=== PATIENT | female | born 1955 | race Asian ===

== ENCOUNTER 2016-06-11 14:28 | Emergency (ER) | payer BC, OTHER ==
[~2016-06-11] VITALS: Ht 157.5 cm; Wt 53.6 kg
[~2016-06-11 14:28] MED LIST: SIMV20TA2 PO; VITAMIN E PO
[2016-06-11 14:29] VITALS: Ht 157.5 cm; Wt 53.6 kg
[2016-06-11] MEDS ORDERED: ASPIRIN 81 MG TAB PO STA (14:45)
[2016-06-11] MEDS ORDERED: NITROGLYCERIN 2% 1 GM OINT PKT TD STA (14:45)
[2016-06-11] MEDS ORDERED: SOD CHLORIDE 0.9% 1,000 ML IV STA (14:46)
[2016-06-11] MEDS ORDERED: NITROGLYCERIN (SL) 0.4 MG TAB SL PRN (15:00)
[2016-06-11 15:18] LABS: ADD SCAN DIFF NO
[2016-06-11 15:20] LABS: BASOPHILS % 0.1 % (0.0-2.0); EOSINOPHILS % 0.1 % (0.0-7.0); HEMATOCRIT 46.3 % (37.0-47.0); HEMOGLOBIN 15.3 g/dl (12.0-16.0); LYMPHOCYTES # 0.8 10^3/ul (0.8-2.9); LYMPHOCYTES % 4.3 % (15.0-51.0); MEAN CORPUSCULAR HEMOGLOBIN 29.4 pg (29.0-33.0); MEAN PLATELET VOLUME 10.2 fl (7.4-10.4); MONOCYTE # 0.6 10^3/ul (0.3-0.9); MONOCYTES % 3.2 % (0.0-11.0); NEUTROPHIL # 17.7 10^3/ul (1.6-7.5); NEUTROPHILS % 91.5 % (39.0-77.0); PLATELET COUNT 238 10^3/UL (140-415); RED CELL DISTRIBUTION WIDTH 12.7 % (11.5-14.5); WHITE BLOOD COUNT 19.4 10^3/ul (4.8-10.8)
[2016-06-11 15:35] LABS: INR 0.86; PROTIME 11.7 Sec (12.2-14.2); PT RATIO 0.9
[2016-06-11 15:36] LABS: CHLORIDE 101 mmol/L (97-110); PARTIAL THROMBOPLASTIN TIME 25.8 Sec (25.0-35.0); SODIUM 140 mmol/L (135-144)
[2016-06-11 15:37] LABS: POTASSIUM 3.4 mmol/L (3.5-5.1)
[2016-06-11 15:39] LABS: ANION GAP 18 (8-16); CARBON DIOXIDE 24 mmol/L (21-31); CREATININE 0.77 mg/dl (0.44-1.00)
[2016-06-11 15:40] LABS: BLOOD UREA NITROGEN 13 mg/dl (7-20); CALCIUM 9.5 mg/dl (8.4-10.2); GLUCOSE 156 mg/dl (70-220)
--- NOTE | 2016-06-11 15:41 | RADRPT ---
PROCEDURE: XR Chest. CLINICAL INDICATION: Chest pain. TECHNIQUE: Single frontal view. COMPARISON: None. FINDINGS: The lungs are clear. The heart size is normal. There is a 2.3 cm soft tissue density superior to the aortic arch. There is no pleural effusion. There is no pneumothorax. IMPRESSION: 1. Soft tissue density measuring 2.3 cm superior to the aortic arch. This may indicate lymphadenop athy, aneurysm, or other vascular anomaly. Correlation with contrast enhanced CT scan of the chest is advised. 2. Otherwise unremarkable chest radiograph. RPTAT: QQ .Barrington Vanegas MD, MD Date Time Electronically viewed and signed by .Barrington Vanegas MD, MD on 06/11/2016 15:40 .R/
[2016-06-11] MEDS ORDERED: SOD CHLORIDE 0.9% 100 ML ONE (15:45)
[2016-06-11] MEDS ORDERED: IOHEXOL 100 ML ONE (15:45)
[2016-06-11 15:52] LABS: TROPONIN-I < 0.012 ng/ml (0.00-0.12)
--- NOTE | 2016-06-11 16:28 | RADRPT ---
PROCEDURE: CT Pulmonary Angiogram. CLINICAL INDICATION: Chest pain and shortness of breath. TECHNIQUE: CT pulmonary angiogram and a CT scan of the chest with contrast was performed. The pat ient was scanned following the uncomplicated intravenous administration of 100 cc of Omnipaque-350 i ntravenous contrast. 2-D coronal reformatted images were obtained from the axial source images. In addition, 3-D post processing was performed. Total exam DLP is 250.84 mGy-cm. CTDIvol is 35.21 mG y. One or more of the following dose reduction techniques were used: Automated exposure control, ad justment of the mA and/or kV according to patient size, use of iterative reconstruction technique. COMPARISON: None available. FINDINGS: The pulmonary arteries are normal with no filling defect or lack of enhancement to suggest pulmonary artery embolism. The lungs are clear. There is no pulmonary airspace or interstitial disease. There is no pulmonary nodule or mass lesion. There is no pneumothorax. There is no mediastinal or hilar lymphadenopathy or mass. There is no pleural effusion. There is no pericardial effusion. The thoracic aorta is normal with no aneurysm or dissection. Images through the upper abdomen demonstrate normal visualized portions of the liver, spleen, and ad renals. The osseous structures are normal with no fracture or lytic lesion. IMPRESSION: 1. Normal CT pulmonary angiogram with no evidence of pulmonary artery embolism. 2. Normal CT scan of the chest. RPTAT: QQ .Barrington Vanegas MD, MD Date Time Electronically viewed and signed by .Barrington Vanegas MD, MD on 06/11/2016 16:28 .R/
[2016-06-11] MEDS ORDERED: POTASSIUM CHLORIDE (SR) 20 MEQ TAB PO STA (17:16)
--- NOTE | 2016-06-11 17:18 | ERD ---
ER Documentation Chief Complaint Date/Time DATE: 06/11/16 TIME: 17:17 Chief Complaint chest pain, shortness of breath and vomitting HPI Is a 58-year-old female with no medical problems who presents feeling shortness of breath. She felt like she was cold and shivering. She felt like her heart was racing. She says that it started 2 hours ago. She denies fevers. She has had nausea and vomiting but no diarrhea. She has had right leg swelling "for a while" but it had an ultrasound which was negative. Upon review of old medical records this is the patient's first visit to the emergency department. She said that her primary doctor is Dr. Scott. ROS All systems reviewed and are negative except as per history of present illness. Medications Home Meds Discontinued Reported Medications Simvastatin (Simvastatin) 20 Mg Tablet, 20 MG PO DAILY, #30 TAB 12/17/15 [Vitamin E] No Conflict Check, 1 TAB PO DAILY 12/17/15 Allergies Allergies: Coded Allergies: No Known Allergy (Unverified , 06/11/16) PMhx/Soc History of Surgery: Yes (HYSTERECTOMY) Anesthesia Reaction: No Hx Neurological Disorder: No Hx Respiratory Disorders: No Hx Cardiac Disorders: No Hx Psychiatric Problems: No Hx Miscellaneous Medical Probl: Yes (UTERINE CA) Hx Alcohol Use: No Hx Substance Use: No Hx Tobacco Use: No Smoking Status: Never smoker FmHx Family History: coronary disease Physical Exam Vitals Vital Signs Date Time Temp Pulse Resp B/P Pulse Ox O2 Delivery O2 Flow Rate FiO2 06/11/16 17:40 97.9 77 16 100/58 100 Room Air 06/11/16 14:29 99.4 116 32 129/80 97 Physical Exam Const: Mild distress Head: Atraumatic Eyes: Normal Conjunctiva ENT: Normal External Ears, Nose and Mouth. Neck: Full range of motion..~ No meningismus. Resp: Clear to auscultation bilaterally Cardio: Regular rate and rhythm, no murmurs Abd: Soft, non tender, non distended. Normal bowel sounds Skin: No petechiae or rashes Back: No midline or flank tenderness Ext: No cyanosis, or edema Neur: Awake and alert Psych: Normal Mood and Affect Result Diagram: 06/11/16 1509 06/11/16 1509 Results 24 hrs Laboratory Tests Test 06/11/16 15:09 White Blood Count 19.410^3/ul Red Blood Count 5.2010^6/ul Hemoglobin 15.3g/dl Hematocrit 46.3% Mean Corpuscular Volume 89.0fl Mean Corpuscular Hemoglobin 29.4pg Mean Corpuscular Hemoglobin Concent 33.0g/dl Red Cell Distribution Width 12.7% Platelet Count 21203^3/UL Mean Platelet Volume 10.2fl Neutrophils % 91.5% Lymphocytes % 4.3% Monocytes % 3.2% Eosinophils % 0.1% Basophils % 0.1% Nucleated Red Blood Cells % 0.0/100WBC Neutrophils # 17.710^3/ul Lymphocytes # 0.810^3/ul Monocytes # 0.610^3/ul Eosinophils # 0.010^3/ul Basophils # 0.010^3/ul Nucleated Red Blood Cells # 0.010^3/ul Prothrombin Time 11.7Sec Prothrombin Time Ratio 0.9 INR International Normalized Ratio 0.86 Activated Partial Thromboplast Time 25.8Sec Sodium Level 140mmol/L Potassium Level 3.4mmol/L Chloride Level 101mmol/L Carbon Dioxide Level 24mmol/L Anion Gap 18 Blood Urea Nitrogen 13mg/dl Creatinine 0.77mg/dl Glucose Level 156mg/dl Calcium Level 9.5mg/dl Troponin I < 0.012ng/ml Current Medications Medications (Trade) Dose Ordered Sig/Nimisha Route PRN Reason Start Time Stop Time Status Last Admin Dose Admin Aspirin (Aspirin) 162 mg ONCE STAT PO 06/11/16 14:45 06/11/16 14:46 DC 06/11/16 15:19 Nitroglycerin (Nitroglycerin 2% Oint) 1 inch ONCE STAT TD 06/11/16 14:45 06/11/16 14:46 DC Nitroglycerin 1 tab 1 tab Q5M UP TO 3 DOSES PRN SL CHEST PAIN 06/11/16 15:00 06/11/16 17:41 DC Sodium Chloride (NS) 1,000 ml @ 1,000 mls/hr Q1H STAT IV 06/11/16 14:46 06/11/16 15:45 DC 06/11/16 15:19 IV Flush 10 ml 10 ml STK-MED ONCE .ROUTE 06/11/16 15:45 06/11/16 15:46 DC 06/11/16 16:27 Sodium Chloride 100 ml @ ud STK-MED ONCE .ROUTE 06/11/16 15:45 06/11/16 15:46 DC 06/11/16 16:27 Iohexol (Omnipaque) 100 ml @ ud STK-MED ONCE .ROUTE 06/11/16 15:45 06/11/16 15:46 DC 06/11/16 16:28 Potassium Chloride (Klor-Con 20) 40 meq ONCE STAT PO 06/11/16 17:16 06/11/16 17:19 DC 06/11/16 17:26 Procedures/MDM EKG read by me: Rate/Rhythm: Regular rate and rhythm at a rate of 98 Intervals: Normal Impression: No evidence of ischemia or arrhythmia CT scan negative per radiology. Patient is a 60-year-old female who presents with shortness of breath. She was found to have mild hypokalemia and was given potassium by mouth. She has a leukocytosis which potentially could be from a viral illness. At this point I see no signs of serious bacterial infection. The patient is afebrile. The patient had a CT scan of the chest which shows no signs of pneumothorax, pneumonia, or pulmonary embolism. I doubt aortic dissection. I was concerned for potential acute coronary syndrome and I want to admit the patient to the hospital for further workup and telemetry monitoring. However the patient is refusing admission at this time and wants to go home. She understands the risks of leaving. The patient will need to follow-up closely with her primary doctor within 24-48 hours for reevaluation. She can return sooner for any worsening symptoms. She was given copies of her laboratory studies and imaging test report prior to discharge. Departure Diagnosis: Primary Impression: Leukocytosis Leukocytosis type: unspecified Qualified Code: D72.829 - Leukocytosis, unspecified type Additional Impressions: Chest pain Chest pain type: unspecified Qualified Code: R07.9 - Chest pain, unspecified type Hypokalemia Condition: Fair Patient Instructions: Chest Pain, Uncertain Cause Referrals: HO SCOTT (PCP) Additional Instructions: Call your primary care doctor TOMORROW for an appointment during the next 1-2 days.See the doctor sooner or return here if your condition worsens before your appointment time. MAHOGANY MALONEY MD June 11, 2016 17:18
[2016-06-11 17:40] VITALS: BP 100/58; PULSE 77; RESP 16; TEMP 97.9
== END 2016-06-11 17:41 | disposition home or self-care (01) ==
LOC: E/R 14:28
DX: D72.829 Elevated white blood cell count, unspecified (principal); E87.6 Hypokalemia; R40.2142 Coma scale, eyes open, spontaneous, at arrival to emergency department; R40.2252 Coma scale, best verbal response, oriented, at arrival to emergency department; R40.2362 Coma scale, best motor response, obeys commands, at arrival to emergency department
CPT/HCPCS: 36415; 71010; 71275; 80048; 84484; 85025; 85610; 85730; 93005; 99285; J7030; Q9967